=== PATIENT | female | born 1975 | race Caucasian/White ===

== ENCOUNTER 2022-01-21 13:49 | Emergency (ER) | payer MEDICAID ==
[~2022-01-21] VITALS: Ht 154.9 cm; Wt 77.5 kg
[2022-01-21] MEDS ORDERED: LISINOPRIL (13:56)
[2022-01-21] MEDS ORDERED: METFORMIN (13:56)
[2022-01-21] MEDS ORDERED: KEPPRA (13:56)
[2022-01-21] MEDS ORDERED: ONDANSETRON HCL 4MG/2ML INJ IV STA (14:23)
[2022-01-21] MEDS ORDERED: MORPHINE SULFATE 4 MG/ML CPJ (NOT FOR IM USE) IV STA (14:23)
[2022-01-21] MEDS ORDERED: SODIUM CHLORIDE 0.9% 1,000 ML IV ONE (14:30)
[2022-01-21] MEDS ORDERED: CLONIDINE 0.2MG TABLET PO ONE (14:30)
[2022-01-21 15:36] LABS: BASOPHILS % 1.2 % (0.0-2.0); EOSINOPHILS % 1.3 % (0.0-5.0); HEMOGLOBIN. 8.7 g/dL (12.0-16.0); LYMPHOCYTES % 23.7 % (20.0-50.0); MEAN CORPUSCULAR HEMOGLOBIN 19.7 pg (28.0-32.0); MEAN CORPUSCULAR VOLUME 63.8 fL (81.0-99.0); MONOCYTES % 5.7 % (2.0-8.0); NEUTROPHILS % 68.1 % (40.0-76.0); PLATELET 333 x1000/uL (130-400); RED BLOOD CELL COUNT 4.39 mill/uL (4.2-5.4); RED CELL DISTRIBUTION WIDTH 20.4 % (11.6-14.6)
[2022-01-21 15:45] LABS: CHLORIDE 109 mEq/L (98-107)
[2022-01-21] MEDS ORDERED: DIPHENHYDRAMINE 50MG/ML VIAL IV ONE (16:45)
[2022-01-21] MEDS ORDERED: METOCLOPRAMIDE HCL 10MG/2ML VIAL IV ONE (16:45)
[2022-01-21 17:13] LABS: PLATELET ESTIMATE NORMAL
[2022-01-21] MEDS ORDERED: LISI10TA26 MT (17:49)
[2022-01-21] MEDS ORDERED: BUTA1CAP45 MT (17:49)
[2022-01-21] MEDS ORDERED: IBUP-2028 MT (17:49)
[2022-01-21 18:50] VITALS: BP 120/55
== END 2022-01-21 18:53 | disposition home or self-care (01) ==
LOC: ER 13:49
DX: R51.9 Headache, unspecified (principal); I10 Essential (primary) hypertension; E11.9 Type 2 diabetes mellitus without complications; G40.909 Epilepsy, unspecified, not intractable, without status epilepticus; Z98.890 Other specified postprocedural states; Z79.84 Long term (current) use of oral hypoglycemic drugs
CPT/HCPCS: 36415; 70450; 71045; 80053; 83880; 84484; 85025; 93005; 96361; 96375; 96376; 99285; J1200; J2270; J2405; J2765; J7030